=== PATIENT | male | born 1990 ===

== ENCOUNTER 2018-06-06 08:03 | Emergency (ER) | payer SELFPAY ==
[2018-06-06 08:21] VITALS: BP 128/73
--- NOTE | 2018-06-06 08:52 | UC ---
Ear Complaint HPI - HPI Summary HPI Summary: DECREASED HEARING AND BLOCKAGE OF RIGHT EAR FOR THE PAST 2 DAYS. NO PAIN. NO FEVER OR URI SYMPTOMS. - History of Current Complaint Chief Complaint: UCEar Stated Complaint: EAR COMPLAINT Time Seen by Provider: 06/06/18 08:39 Hx Obtained From: Patient Onset/Duration: Gradual Onset, Lasting Days, Still Present Severity Initially: Mild Severity Currently: Mild Pain Intensity: 0 Pain Scale Used: 0-10 Numeric Aggravating Factors: Nothing Alleviating Factors: Nothing Associated Signs/Symptoms: Positive: Hearing Loss. Negative: Discharge, Trauma to Ear, URI Symptoms - Allergies/Home Medications Allergies/Adverse Reactions: Allergies Allergy/AdvReac Type Severity Reaction Status Date / Time No Known Allergies Allergy Verified 06/06/18 08:21 Home Medications: Home Medications NK [No Home Medications Reported] 06/06/18 [History Confirmed 06/06/18] PMH/Surg Hx/FS Hx/Imm Hx Previously Healthy: Yes - Surgical History Surgical History: None - Family History Known Family History: Positive: Cardiac Disease - Social History Alcohol Use: Rare Substance Use Type: None Smoking Status (MU): Never Smoked Tobacco Review of Systems Constitutional: Negative ENT: Other - RIGHT EAR BLOCKAGE/DECREASED HEARING Respiratory: Negative Cardiovascular: Negative Gastrointestinal: Negative All Other Systems Reviewed And Are Negative: Yes Physical Exam Triage Information Reviewed: Yes Appearance: Well-Appearing, No Pain Distress, Well-Nourished Vital Signs: Initial Vital Signs Temp 98.3 F 06/06/18 08:12 Pulse 57 06/06/18 08:12 Resp 16 06/06/18 08:12 BP 128/73 06/06/18 08:12 Pulse Ox 98 06/06/18 08:12 Vital Signs Reviewed: Yes Eyes: Positive: Conjunctiva Clear ENT: Positive: Hearing grossly normal, Pharynx normal, TMs normal, Other - RIGHT EAC COMPLETELY OCCLUDED WITH CERUMEN. LEFT EAC WITH MODERATE AMOUNT NONOBSTRUCTIVE CERUMEN Neck: Positive: Supple, Nontender, No Lymphadenopathy Respiratory: Positive: No respiratory distress, No accessory muscle use Cardiovascular: Positive: Pulses Normal Abdomen Description: Positive: Soft Musculoskeletal: Positive: No Edema Neurological: Positive: Alert Psychological: Positive: Age Appropriate Behavior Skin: Negative: rashes Ear Complaint Course/Dx - Course Course Of Treatment: RIGHT EAC SUCCESSFULLY IRRIAGTED BY RN. PT REPORTS HEARING IS RETURNED. - Differential Dx/Diagnosis Provider Diagnoses: RIGHT SIDED CERUMEN IMPACTION Discharge - Sign-Out/Discharge Documenting (check all that apply): Patient Departure All imaging exams completed and their final reports reviewed: No Studies - Discharge Plan Condition: Stable Disposition: HOME Patient Education Materials: Cerumen Impaction (ED) Referrals: No Primary Care Phys,NOPCP [Primary Care Provider] - Additional Instructions: NOW THAT YOUR EAR CANALS ARE CLEAR OF WAX YOU MAY USE A QTIP TO GENTLY AND CAREFULLY CLEAN YOUR EARS ONCE OR TWICE A WEEK TO KEEP WAX FROM BUILDING UP. DO NOT INSERT THE QTIP ANY FURTHER THAN THE DEPTH OF THE [employer]. CALL THE NUMBER BELOW FOR ASSISTANCE IN ESTABLISHING WITH A PCP An additional resource available to assist in finding the appropriate physician for your health care needs is [facility] ([facility]). You may contact them by calling [phone]. - Billing Disposition and Condition Condition: STABLE Disposition: Home
== END 2018-06-06 09:10 | disposition home or self-care (01) ==
LOC: UCEAST 08:03
DX: H61.21 Impacted cerumen, right ear (principal)
CPT/HCPCS: 99202; G0463